=== PATIENT | female | born 1965 | race Caucasian/White ===

== ENCOUNTER → 2022-12-10 09:02 | Outpatient (BNVA) | payer OTHER, SELFPAY | PROVIDERS: Visit Provider Student in an Organized Health Care Education/Training Program | DX: Z13.89 Encounter for screening for other disorder (principal) ==

== ENCOUNTER 2023-06-12 11:31 | Outpatient (AMB) | payer OTHER, SELFPAY ==
--- NOTE | 2023-06-12 11:31 | MHC.OFFVIS ---
Intake Intake Visit Reasons: PsA Allergies pantoprazole Adverse Reaction (Intermediate, Verified 06/12/23 11:33) Unknown morphine Adverse Reaction (Unknown, Verified 06/12/23 11:33) unknown NSAIDS (Non-Steroidal Anti-Inflamma Adverse Reaction (Unknown, Verified 06/12/23 11:33) Unknown onions and garlic Allergy (Unknown, Uncoded 06/12/23 11:33) Unknown Medication List - Last Reconciled 06/12/23 by Courtney Wild MD adalimumab (Humira(CF) Pen) 40 mg (0.4 mL) subcut Q2W albuterol sulfate 90 mcg/actuation (ProAir HFA) 2 puffs inhalation Q6H PRN calcium carbonate-vitamin D3 600 mg-10 mcg (400 unit) (Calcium 600 + D(3)) 1 tab PO DAILY conjugated estrogens (Premarin) 0.625 mg vaginal 2XW diphenhydramine HCl (Benadryl Allergy) 25 mg PO BEDTIME PRN fluocinonide 0.05% 1 appl topical BID fluoxetine 20 mg PO TID fluticasone propionate 50 mcg/actuation (Flonase Allergy Relief) 1 spray intranasal DAILY folic acid 1 mg PO DAILY multivitamin (Daily Multi-Vitamin tablet) 1 tab PO DAILY olanzapine 2.5 mg PO BID HPI HPI Comments History of Present Illness Details 58-year-old female with psoriatic arthritis returns for a tele health visit. She states that she is having some stomach upset. She believes that she ate too much a few days ago and she does not feel comfortable driving to [place]. She denies any fevers or diarrhea. Compliant with Humira. No new rashes. Initial history: This is a 57-year-old female with a past medical history of anxiety, depression, GERD, HLA B27 positive ankylosing spondylitis who presents for evaluation of ankylosing spondylitis. 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 Symptoms started about 7 years ago with pain in right hand, right wrist and right ankle.? Gets swelling in right thumb, right wrist and right ankle swelling.?She has had low back pain for more than 15 years ago, she has had multiple back injections. She was diagnosed with psoriasis more than 20 years ago, at psoriasis on scalp, hands and feet as well as other areas.? This has been managed with steroid creams.? Father has psoriasis He was initially evaluated by Dr. Crow in 02/2021, she was started on methotrexate, patient could not tolerate methotrexate due to significant GI upset and fatigue. She was switched to Humira in September of 2021 and has been doing great since then. She continues to have occasional aches and pains usually related to activity. No recurrent psoriasis currently. [facility] Medical History Anxiety and depression Asthma Dermatitis GERD (gastroesophageal reflux disease) IBS (irritable bowel syndrome) Obesity Surgical History H/O: hysterectomy History of knee replacement Hx of colonoscopy Hx of esophagogastroduodenoscopy Family History Mother COPD (chronic obstructive pulmonary disease) Hyperlipemia PVD (peripheral vascular disease) CVA (cerebral vascular accident) Father Psoriasis Social History Household Members: Spouse Household Members Other:: Daugther in medical school Alcohol intake: current Patient Tobacco Use Status: Never used Tobacco Current occupational status: employed 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 Review of Systems Const All systems reviewed & are unremarkable except as noted in HPI and below ENT Reports no additional complaints GI Reports dyspepsia Psych Reports no additional complaints Physical Exam Resp Effort & Inspection: normal respiratory effort and able to speak in complete sentences Assessment & Plan Assessment & Plan (1) Psoriatic arthritis: Comment: HLA b27 +ve Dx 02/2021, MRI +ve for sacroiliitis L>R no erosions MTX started 04/2021, not tolerated due to GI upset Humira started 09/2021 effective Code(s): L40.50 - Arthropathic psoriasis, unspecified Plan: This is a 58-year-old female with psoriatic arthritis who rate presents for a tele health phone visit. Doing well overall. Denies any swollen or tender joints. Denies any skin rashes. Recent labs in December 2022 showed normal inflammatory markers. Continue Humira every other week. Labs before next visit in 4 months (2) Transaminitis: Code(s): R74.01 - Elevation of levels of liver transaminase levels Plan: Chronic and fluctuating. Has been following up with Gastroenterology. Plan I spent 8 minutes on the phone with patient, additional 7 minutes were spent reviewing patient's chart and documenting Telehealth Telehealth Location of provider rendering services: practice address Location of patient: address on file Patient Identification confirmed using: Name, : Yes Telehealth method: voice only Patient verbally consented to treatment: Yes Patient verbally consented to billing insurance company: Yes Coding Level of Care Code Tele Est Pt Level 3 (97414) Diagnoses Psoriatic arthritis L40.50 Transaminitis R74.01
== END 2023-06-12 11:59 | disposition home or self-care (01) ==
LOC: HO.RHE 11:31
PROVIDERS: Visit Provider Student in an Organized Health Care Education/Training Program
DX: L40.50 Arthropathic psoriasis, unspecified (principal); R74.01 Elevation of levels of liver transaminase levels
CPT/HCPCS: 99442

== ENCOUNTER → 2023-06-12 11:31 | Outpatient (BNVA) | payer OTHER, SELFPAY | PROVIDERS: Visit Provider Student in an Organized Health Care Education/Training Program ==

== ENCOUNTER 2023-08-19 12:05 | Outpatient (AMB) | payer OTHER, SELFPAY ==
[2023-08-19 12:06] VITALS: BP 114/80; PULSE 76; TEMP 36.2; O2SAT 94; BMI 38.8
--- NOTE | 2023-08-19 12:06 | MHC.OFFVIS ---
Intake Vital Signs 08/19/23 12:06 Height 5 ft Weight 198 lb 13.711 oz BMI 38.8 BP 114/80 Blood Pressure Location Lt brachial Position Sitting Pulse 76 Pulse Source Pulse Oximeter Temp 97.1 F Temp Source Skin Pulse Oximetry (%) 94 Oxygen Delivery Method Room Air Intake Visit Reasons: RA Intake Note: Pt presents today for RA follow up and test results. Patient would like to discuss new RA treatment. 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 Required: No Accompanied by: Self / Same As Patient Allergies adalimumab [From Humira(CF)] Adverse Reaction (Intermediate, Verified 08/19/23 12:47) peripheral neuropathy pantoprazole Adverse Reaction (Intermediate, Verified 08/19/23 12:07) Unknown morphine Adverse Reaction (Unknown, Verified 08/19/23 12:07) unknown NSAIDS (Non-Steroidal Anti-Inflamma Adverse Reaction (Unknown, Verified 08/19/23 12:07) Unknown onions and garlic Allergy (Unknown, Uncoded 08/19/23 12:07) Unknown Medication List - Last Reconciled 08/19/23 by Courtney Wild MD albuterol sulfate 90 mcg/actuation (ProAir HFA) 2 puffs inhalation Q6H PRN calcium carbonate-vitamin D3 600 mg-10 mcg (400 unit) (Calcium 600 + D(3)) 1 tab PO DAILY ciclopirox 8% topical conjugated estrogens (Premarin) 0.625 mg vaginal 2XW diphenhydramine HCl (Benadryl Allergy) 25 mg PO BEDTIME PRN fluocinonide 0.05% 1 appl topical BID fluoxetine 20 mg PO TID fluticasone propionate 50 mcg/actuation (Flonase Allergy Relief) 1 spray intranasal DAILY folic acid 1 mg PO DAILY multivitamin (Daily Multi-Vitamin tablet) 1 tab PO DAILY olanzapine 2.5 mg PO BID vit C,F-Ss-haqpy-lutein-zeaxan 250-90-40-1 mg (PreserVision AREDS-2) 2 tabs PO ONCE HPI HPI Comments History of Present Illness Details 58-year-old female with psoriatic arthritis/spondylitis returns for follow-up. Three weeks ago patient call the clinic complaining of tingling and numbness of all her 4 extremities. This had been going on for at least 1 month. I advised patient to hold Humira. Patient stopped Humira for the last month. She states that she had at least 80-90% improvement in her neuropathic symptoms. However she has been having worsening left lower back/left buttock pain. States that she has been getting more itchy scalp recently but no clear psoriasis patches. Initial history: This is a 57-year-old female with a past medical history of anxiety, depression, GERD, HLA B27 positive ankylosing spondylitis who presents for evaluation of ankylosing spondylitis. 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 Symptoms started about 7 years ago with pain in right hand, right wrist and right ankle.? Gets swelling in right thumb, right wrist and right ankle swelling.?She has had low back pain for more than 15 years ago, she has had multiple back injections. She was diagnosed with psoriasis more than 20 years ago, at psoriasis on scalp, hands and feet as well as other areas.? This has been managed with steroid creams.? Father has psoriasis He was initially evaluated by Dr. Crow in 02/2021, she was started on methotrexate, patient could not tolerate methotrexate due to significant GI upset and fatigue. She was switched to Humira in September of 2021 and has been doing great since then. She continues to have occasional aches and pains usually related to activity. No recurrent psoriasis currently. [facility] Medical History Obesity IBS (irritable bowel syndrome) GERD (gastroesophageal reflux disease) Dermatitis Asthma Anxiety and depression Surgical History Hx of esophagogastroduodenoscopy Hx of colonoscopy History of knee replacement H/O: hysterectomy Family History Mother COPD (chronic obstructive pulmonary disease) Hyperlipemia PVD (peripheral vascular disease) CVA (cerebral vascular accident) Father Psoriasis Social History Household Members: Spouse Household Members Other:: Daugther in medical school Alcohol intake: current Patient Tobacco Use Status: Never used Tobacco Current occupational status: employed 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 Review of Systems Const All systems reviewed & are unremarkable except as noted in HPI and below ENT Reports no additional complaints GI Reports dyspepsia Musc Reports back pain Skin/Breast Reports pruritus and Denies rash Psych Reports no additional complaints Physical Exam Vital Signs: Last Vital Signs Temp 97.1 F 08/19/23 12:06 Pulse 76 08/19/23 12:06 BP 114/80 08/19/23 12:06 Pulse Ox 94 08/19/23 12:06 Oxygen Delivery Method Room Air 08/19/23 12:06 BMI result Body Mass Index 38.8 Const General: cooperative, healthy appearing, comfortable and no acute distress Nutritional Appearance: obese Orientation/consciousness: patient oriented x3 HEENT Head: Yes normocephalic and Yes atraumatic Resp Effort & Inspection: normal respiratory effort and able to speak in complete sentences Auscultation: clear to auscultation bilaterally Cardio Rate: regular rate Rhythm: regular rhythm Heart sounds: S1 normal heart sound present and S2 normal heart sound present GI Inspection: No distended Palpation (GI): Soft to palpation and nontender Skin Other: No psoriasis rashes appreciated today Rashes: no rashes Neuro General: patient oriented x3 Extrem Other: No active synovitis Chavez test 10-17 cm Normal lateral flexion test bilaterally Left buttock discomfort with straight leg raise test Left buttock tenderness Normal nailfold capillaroscopy Few finger nail ridges Assessment & Plan Assessment & Plan (1) Psoriatic arthritis: Comment: HLA b27 +ve Dx 02/2021, MRI +ve for sacroiliitis L>R no erosions MTX started 04/2021, not tolerated due to GI upset Humira started 09/2021 effective DC 07/2023 due to neuropathy Code(s): L40.50 - Arthropathic psoriasis, unspecified Plan: This is a 58-year-old female with psoriatic arthritis/spondylitis who presents for follow-up. Patient discontinued Humira about a month ago due to neuropathy symptoms with rapid improvement of her symptoms. Need to switch DMARDs. Discussed risks and benefits of IL 17 inhibitors. There is no known family history of inflammatory bowel disease. Patient agreed to proceed. Will start prior authorization for Taltz. Cosentyx would also be a good option. Labs today and before next visit in 3 months Infectious screening: Hepatitis panel and T spot negative in 2022 (2) Transaminitis: Code(s): R74.01 - Elevation of levels of liver transaminase levels Plan: Chronic and fluctuating. Has been following up with Gastroenterology. (3) Immunization counseling: Code(s): Z71.85 - Encounter for immunization safety counseling Plan: Discussed ACR vaccination guidelines for adults with autoimmune rheumatic disease on immune suppression. Patient received both flu and COVID vaccines this season. Plan I spent 32 minutes reviewing patient's chart, evaluating patient, ordering diagnostic workup, counseling patient and documenting in the chart Orders: Orders Complete Blood Count Auto Diff Today L40.50 - Arthropathic psoriasis, unspecified Comprehensive Met. Panel Today L40.50 - Arthropathic psoriasis, unspecified Complete Blood Count Auto Diff 3 Months L40.50 - Arthropathic psoriasis, unspecified Comprehensive Met. Panel 3 Months L40.50 - Arthropathic psoriasis, unspecified Erythrocyte Sedimentation Rate 3 Months L40.50 - Arthropathic psoriasis, unspecified C Reactive Protein Today L40.50 - Arthropathic psoriasis, unspecified Erythrocyte Sedimentation Rate Today L40.50 - Arthropathic psoriasis, unspecified C Reactive Protein 3 Months L40.50 - Arthropathic psoriasis, unspecified Coding Level of Care Code Est Pt Level 4 (14445) Diagnoses Psoriatic arthritis L40.50 Transaminitis R74.01 Immunization counseling Z71.85
== END 2023-08-19 12:45 | disposition home or self-care (01) ==
LOC: HO.RHE 12:05
PROVIDERS: Visit Provider Student in an Organized Health Care Education/Training Program
DX: L40.50 Arthropathic psoriasis, unspecified (principal); R74.01 Elevation of levels of liver transaminase levels; Z71.85 Encounter for immunization safety counseling
CPT/HCPCS: 99214

== ENCOUNTER → 2023-08-19 12:05 | Outpatient (BNVA) | payer OTHER, SELFPAY | PROVIDERS: Visit Provider Student in an Organized Health Care Education/Training Program ==

== ENCOUNTER 2023-08-19 12:54 | Outpatient (REF) | payer OTHER, SELFPAY ==
[2023-08-19 13:28] LABS: MANUAL DIFF FLAG NO
[2023-08-19 13:50] LABS: Basophils Percent Auto 0.8 % (0-2); Eosinophils Percent Auto 0.8 % (0-4); Hematocrit 40.6 % (37.0-47.0); Hemoglobin 13.6 g/dl (12.0-16.0); Imm Gran Abs Auto 0.02 X10*3/uL (0.00-0.03); Imm Gran Pct Auto 0.4 % (0.0-0.4); Lymphocytes Absolute Auto 1.1 X10*3/uL (1.2-4.9); Lymphocytes Percent Auto 21.4 % (20-40); Mean Corpuscular HGB Conc 33.5 g/dl (31.0-35.0); Mean Corpuscular Hemoglobin 30.5 pg (27.0-33.0); Mean Platelet Volume 10.6 fL (9.4-12.3); Monocytes Absolute Auto 0.5 X10*3/uL (0.1-1.2); Monocytes Percent Auto 9.7 % (2-11); Neutrophils Absolute Auto 3.5 x10*3/uL (2.0-8.3); Neutrophils Percent Auto 66.9 % (45-73); Platelet Count 290 X10*3/uL (160-400); Red Blood Count 4.46 X10*6/uL (4.20-5.50); Red Cell Distribution Width 13.1 % (11.0-16.0); White Blood Count 5.2 X10*3/uL (4.8-10.8)
[2023-08-19 14:55] LABS: Erythrocyte Sedimentation Rate 16 MM/HR (0-20)
[2023-08-19 15:09] LABS: Alanine Aminotransferase 49 U/L (0-31); Albumin Level 4.2 g/dL (3.5-5.0); Alkaline Phosphatase 53 U/L (39-117); Anion Gap 14 (12-20); Aspartate Amino Transferase 36 U/L (5-31); Bilirubin Total 0.4 mg/dL (0.0-1.0); Blood Urea Nitrogen 17 mg/dL (9-16); C Reactive Protein 0.67 mg/dL (< or = 0.50); Calcium 9.7 mg/dL (8.4-10.2); Carbon Dioxide 24 mmol/L (22-29); Chloride 105 mmol/L (96-108); Estimated Glomerular Filt Rate > 60; Glucose Random 86 mg/dL (60-115); Potassium 3.8 mmol/L (3.3-5.1); Sodium 139 mmol/L (135-145); Total Protein 7.3 g/dL (6.5-8.0)
== END 2023-08-19 12:55 | disposition home or self-care (01) ==
LOC: HO.10HDL 12:54
PROVIDERS: Visit Provider Student in an Organized Health Care Education/Training Program
DX: L40.50 Arthropathic psoriasis, unspecified (principal)
CPT/HCPCS: 36415; 80053; 85025; 85652; 86140

== ENCOUNTER 2023-11-17 11:37 | Outpatient (AMB) | payer OTHER, SELFPAY ==
--- NOTE | 2023-11-17 11:39 | A.OFFVIS_ITS ---
Intake Vital Signs 11/17/23 11:48 Height 5 ft BMI Reason not done Patient refused/unable BP 130/80 Blood Pressure Location Rt brachial Position Sitting Pulse 78 Pulse Source Pulse Oximeter Temp 97 F Temp Source Skin Pulse Oximetry (%) 97 Oxygen Delivery Method Room Air Intake Visit Reasons: PsA Intake Note: Pt last seen 08/19/23 presents today for follow up and test results. Medical Practice Assistant Required: No Accompanied by: Self / Same As Patient Allergies adalimumab [From Humira(CF)] Adverse Reaction (Intermediate, Verified 11/17/23 11:47) peripheral neuropathy pantoprazole Adverse Reaction (Intermediate, Verified 11/17/23 11:47) Unknown morphine Adverse Reaction (Unknown, Verified 11/17/23 11:47) unknown NSAIDS (Non-Steroidal Anti-Inflamma Adverse Reaction (Unknown, Verified 11/17/23 11:47) Unknown onions and garlic Allergy (Unknown, Uncoded 11/17/23 11:47) Unknown Medication List - Last Reconciled 11/17/23 by Courtney Wild MD albuterol sulfate 90 mcg/actuation (ProAir HFA) 2 puffs inhalation Q6H PRN calcium carbonate-vitamin D3 600 mg-10 mcg (400 unit) (Calcium 600 + D(3)) 1 tab PO DAILY ciclopirox 8% topical conjugated estrogens (Premarin) 0.625 mg vaginal 2XW diphenhydramine HCl (Benadryl Allergy) 25 mg PO BEDTIME PRN fluconazole 200 mg PO DAILY 14 days fluocinonide 0.05% 1 appl topical BID fluoxetine 20 mg PO TID fluticasone propionate 50 mcg/actuation (Flonase Allergy Relief) 1 spray intranasal DAILY folic acid 1 mg PO DAILY multivitamin (Daily Multi-Vitamin tablet) 1 tab PO DAILY olanzapine 2.5 mg PO BID Taltz Autoinjector (2 Pack) (ixekizumab) 80 mg subcut Q4W NS vit C,P-Zc-zhruv-lutein-zeaxan 250-90-40-1 mg (PreserVision AREDS-2) 2 tabs PO ONCE HPI HPI Comments History of Present Illness Details 58-year-old female with psoriatic arthri tis/spondylitis returns for follow-up. Patient started Taltz about 3 months ago. She received the loading dose followed by 2 maintenance doses. About 10 days ago patient started having a metallic taste in her mouth. She was evaluated by her PCP and was told that she has thrush and prescribed fluconazole 100 mg x 8 days with resolution of the thrush in her mouth however she continues to have some throat pain, pain with swallowing and metallic taste in her mouth. She states that her back/buttock pain is much improved since starting Taltz. Denies any nausea. She states that she continues to get intermittent tingling and numbness of her left upper extremity that lasts very briefly and resolved. Overall the neuropathy symptoms are improving Initial history: This is a 57-year-old female with a past medical history of anxiety, depression, GERD, HLA B27 positive ankylosing spondylitis who presents for evaluation of ankylosing spondylitis. 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 Symptoms started about 7 years ago with pain in right hand, right wrist and right ankle.? Gets swelling in right thumb, right wrist and right ankle swelling.?She has had low back pain for more than 15 years ago, she has had multiple back injections. She was diagnosed with psoriasis more than 20 years ago, at psoriasis on scalp, hands and feet as well as other areas.? This has been managed with steroid creams.? Father has psoriasis He was initially evaluated by Dr. Crow in 02/2021, she was started on methotrexate, patient could not tolerate methotrexate due to significant GI upset and fatigue. She was switched to Humira in September of 2021 and has been doing great since then. She continues to have occasional aches and pains usually related to activity. No recurrent psoriasis currently. [facility] Medical History Obesity IBS (irritable bowel syndrome) GERD (gastroesophageal reflux disease) Dermatitis Asthma Anxiety and depression Surgical History Hx of esophagogastroduodenoscopy Hx of colonoscopy History of knee replacement H/O: hysterectomy Family History Mother COPD (chronic obstructive pulmonary disease) Hyperlipemia PVD (peripheral vascular disease) CVA (cerebral vascular accident) Father Psoriasis Sister Crohn disease Social History Household Members: Spouse Household Members Other:: Daugther in medical school Alcohol intake: current Patient Tobacco Use Status: Never used Tobacco Current occupational status: employed 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 Review of Systems ENT Reports halitosis and Reports odynophagia GI Reports odynophagia Musc Reports back pain and Reports arthralgias Physical Exam Vital Signs: Last Vital Signs Temp 97 F 11/17/23 11:48 Pulse 78 11/17/23 11:48 BP 130/80 11/17/23 11:48 Pulse Ox 97 11/17/23 11:48 Oxygen Delivery Method Room Air 11/17/23 11:48 Const General: cooperative, healthy appearing, comfortable and no acute distress Nutritional Appearance: obese Orientation/consciousness: patient oriented x3 HEENT Other: No thrush Head: Yes normocephalic and Yes atraumatic Mouth: moist mucous membranes Resp Effort & Inspection: normal respiratory effort and able to speak in complete sentences Auscultation: clear to auscultation bilaterally Cardio Rate: regular rate Rhythm: regular rhythm GI Inspection: No distended Palpation (GI): Soft to palpation and nontender Skin Other: No psoriasis rashes appreciated today Rashes: no rashes Neuro General: patient oriented x3 Extrem Other: No active synovitis Left buttock discomfort with straight leg raise test Left buttock tenderness Left lower back/left buttock pain with RAQUEL test on the right Normal nailfold capillaroscopy Few finger nail ridges Assessment & Plan Assessment & Plan (1) Psoriatic arthritis: Comment: HLA b27 +ve Dx 02/2021, MRI +ve for sacroiliitis L>R no erosions MTX started 04/2021, not tolerated due to GI upset Humira started 09/2021 effective DC 07/2023 due to neuropathy Taltz 09/2023 effective Held 11/2022 due to thrush Code(s): L40.50 - Arthropathic psoriasis, unspecified Plan: This is a 58-year-old female with psoriatic arthritis/spondylitis who presents for follow-up. Patient has been on Taltz for about 3 months now, 10 days ago she started having oral thrush, odynophagia, throat pain, she was prescribed fluconazole 100 mg x 8 days by PCP, with resolution of oral thrush but continues to have throat pain and odynophagia. I think this is a side effect of the Taltz. He might be having pharyngeal esophageal candidiasis. For now I advised patient to hold Taltz. Will prescribe fluconazole 200 mg x 14 days. Advised patient to reach out to her director of vocational guidance. I strongly recommend an endoscopy to rule out any esophageal candidiasis or viral infection such as herpes. Before another biologic DMARDs can be tried Advised patient to read up on CIARRA inhibitors such as Xeljanz and Rinvoq Labs before next visit in 8 weeks Infectious screening: Hepatitis panel and T spot negative in 2022 (2) Transaminitis: Code(s): R74.01 - Elevation of levels of liver transaminase levels Plan: Chronic and fluctuating. Has been following up with Gastroenterology. (3) Paresthesia of left upper extremity: Code(s): R20.2 - Paresthesia of skin Plan: Ordered EMG/NCV of left upper extremity Plan I spent 46 minutes reviewing patient's chart, evaluating patient, ordering diagnostic workup, counseling patient and documenting in the chart Orders: Orders Complete Blood Count Auto Diff 8 Weeks L40.50 - Arthropathic psoriasis, unspecified Comprehensive Met. Panel 8 Weeks L40.50 - Arthropathic psoriasis, unspecified C Reactive Protein 8 Weeks L40.50 - Arthropathic psoriasis, unspecified Erythrocyte Sedimentation Rate 8 Weeks L40.50 - Arthropathic psoriasis, unspecified NE electromyogram (EMG) Today R20.2 - Paresthesia of skin Medications: New fluconazole 200 mg PO DAILY 14 days 14 tabs 0RF On Hold Taltz Autoinjector (2 Pack) (ixekizumab) Hold Comment: Doctor's Order 80 mg subcut Q4W 1 mL 2RF NS Coding Level of Care Code Est Pt Level 5 (80135) Diagnoses Psoriatic arthritis L40.50 Transaminitis R74.01 Paresthesia of left upper extremity R20.2
[2023-11-17 11:48] VITALS: BP 130/80; PULSE 78; TEMP 36.1; O2SAT 97
== END 2023-11-17 12:25 | disposition home or self-care (01) ==
LOC: HO.RHE 11:37
PROVIDERS: Visit Provider Student in an Organized Health Care Education/Training Program
DX: L40.50 Arthropathic psoriasis, unspecified (principal); R74.01 Elevation of levels of liver transaminase levels; R20.2 Paresthesia of skin
CPT/HCPCS: 99215

== ENCOUNTER → 2023-11-17 11:37 | Outpatient (BNVA) | payer OTHER, SELFPAY | PROVIDERS: Visit Provider Student in an Organized Health Care Education/Training Program ==

== ENCOUNTER 2023-11-27 10:19 | Outpatient (REF) | payer OTHER, SELFPAY ==
--- NOTE | 2023-11-27 | EMG_ITS ---
Bilateral median and ulnar motor and sensory studies were performed. Bilateral radial sensory study was performed and paraspinal muscles were tested with a needle. IMPRESSION: Mild right median neuropathy across carpal tunnel. Otherwise, this study was unremarkable. MD REAL [facility]/JACOB / [id number]
== END 2023-11-27 10:20 | disposition home or self-care (01) ==
LOC: HO.NEURO 10:19
PROVIDERS: PCP Registered Nurse Oncology; Visit Provider Student in an Organized Health Care Education/Training Program
DX: R20.2 Paresthesia of skin (principal)
CPT/HCPCS: 95886; 95911

== ENCOUNTER 2024-01-07 11:33 | Outpatient (AMB) | payer OTHER, SELFPAY ==
--- NOTE | 2024-01-07 11:42 | A.OFFVIS_ITS ---
Intake Vital Signs 01/07/24 11:46 Height 5 ft BMI Reason not done Patient refused/unable BP 116/72 Blood Pressure Location Rt brachial Pulse 78 Pulse Source Pulse Oximeter Pulse Oximetry (%) 96 Oxygen Delivery Method Room Air Comment pt stated she is on a diet Intake Visit Reasons: Intake Note: Patient last seen 11/17/23 presents today for follow up and test results. Pt did labs at [facility] CRP 0.7 and ESR 15.. they will be faxing a report shortly. Oxygen Equipment Aide Required: No Accompanied by: Self / Same As Patient Allergies adalimumab [From Humira(CF)] Adverse Reaction (Intermediate, Verified 01/07/24 11:48) peripheral neuropathy pantoprazole Adverse Reaction (Intermediate, Verified 01/07/24 11:48) Unknown morphine Adverse Reaction (Unknown, Verified 01/07/24 11:48) unknown NSAIDS (Non-Steroidal Anti-Inflamma Adverse Reaction (Unknown, Verified 01/07/24 11:48) Unknown onions and garlic Allergy (Unknown, Uncoded 01/07/24 11:48) Unknown Medication List - Last Reconciled 01/07/24 by Courtney Wild MD albuterol sulfate 90 mcg/actuation (ProAir HFA) 2 puffs inhalation Q6H PRN calcium carbonate-vitamin D3 600 mg-10 mcg (400 unit) (Calcium 600 + D(3)) 1 tab PO DAILY ciclopirox 8% topical conjugated estrogens (Premarin) 0.625 mg vaginal 2XW diphenhydramine HCl (Benadryl Allergy) 25 mg PO BEDTIME PRN fluconazole 200 mg PO DAILY 14 days fluocinonide 0.05% 1 appl topical BID fluoxetine 20 mg PO TID fluticasone propionate 50 mcg/actuation (Flonase Allergy Relief) 1 spray intranasal DAILY folic acid 1 mg PO DAILY multivitamin (Daily Multi-Vitamin tablet) 1 tab PO DAILY olanzapine 2.5 mg PO BID Rinvoq ER (upadacitinib) 15 mg PO DAILY NS vit C,E-Jy-ktgek-lutein-zeaxan 250-90-40-1 mg (PreserVision AREDS-2) 2 tabs PO ONCE HPI HPI Comments History of Present Illness0 Details 58-year-old female with psoriatic arthri tis/spondylitis returns for follow-up. Patient had a thrush with Taltz. She was prescribed fluconazole with resolution of her oral thrush, an endoscopy was done and grossly there was no signs of infection. We discussed risks and benefits of Rinvoq. Patient agreed to proceed and Rinvoq was approved. Patient did not start Rinvoq yet. She is worried about getting a stroke. She stated that her mother had a stroke. She is going on a trip shortly to [place] and she is worried about getting a blood clot. She continues to have low back stiffness. States that she continues to have neuropathy symptoms affecting her left hand. She states that sometimes her feet go numb while in a dance class. Initial history: This is a 57-year-old female with a past medical history of anxiety, depression, GERD, HLA B27 positive ankylosing spondylitis who presents for evaluation of ankylosing spondylitis. Her previous vp lab left the practice. Symptoms started about 7 years ago with pain in right hand, right wrist and right ankle.? Gets swelling in right thumb, right wrist and right ankle swelling.?She has had low back pain for more than 15 years ago, she has had multiple back injections. She was diagnosed with psoriasis more than 20 years ago, at psoriasis on scalp, hands and feet as well as other areas.? This has been managed with steroid creams.? Father has psoriasis He was initially evaluated by Dr. Crow in 02/2021, she was started on methotrexate, patient could not tolerate methotrexate due to significant GI upset and fatigue. She was switched to Humira in September of 2021 and has been doing great since then. She continues to have occasional aches and pains usually related to activity. No recurrent psoriasis currently. [facility] Medical History Obesity IBS (irritable bowel syndrome) GERD (gastroesophageal reflux disease) Dermatitis Asthma Anxiety and depression Surgical History Hx of esophagogastroduodenoscopy Hx of colonoscopy History of knee replacement H/O: hysterectomy Family History Mother COPD (chronic obstructive pulmonary disease) Hyperlipemia PVD (peripheral vascular disease) CVA (cerebral vascular accident) Father Psoriasis Sister Crohn disease Social History Household Members: Spouse Household Members Other:: Daugther in medical school Alcohol intake: current Patient Tobacco Use Status: Never used Tobacco Current occupational status: employed 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 [employer] Reports back pain, Reports arthralgias, Denies joint swelling and Reports stiffness Psych Reports anxiety Physical Exam Vital Signs: Last Vital Signs Pulse 78 01/07/24 11:46 BP 116/72 01/07/24 11:46 Pulse Ox 96 01/07/24 11:46 Oxygen Delivery Method Room Air 01/07/24 11:46 Const General: cooperative, healthy appearing, comfortable and no acute distress Nutritional Appearance: obese Orientation/consciousness: patient oriented x3 HEENT Other: No thrush Head: Yes normocephalic and Yes atraumatic Mouth: moist mucous membranes Resp Effort & Inspection: normal respiratory effort and able to speak in complete sentences Auscultation: clear to auscultation bilaterally Cardio Rate: regular rate Rhythm: regular rhythm GI Inspection: No distended Palpation (GI): Soft to palpation and nontender Skin Other: No psoriasis rashes appreciated today Rashes: no rashes Neuro General: patient oriented x3 Extrem Other: No active synovitis Left buttock discomfort with straight leg raise test Left buttock tenderness Left lower back/left buttock pain with RAQUEL test on the right Normal nailfold capillaroscopy Few finger nail ridges Assessment & Plan Assessment & Plan (1) Psoriatic arthritis: Comment: HLA b27 +ve Dx 02/2021, MRI +ve for sacroiliitis L>R no erosions MTX started 04/2021, not tolerated due to GI upset Humira started 09/2021 effective DC 07/2023 due to neuropathy Taltz 09/2023 effective DC 11/2022 due to thrush Code(s): L40.50 - Arthropathic psoriasis, unspecified Plan: This is a 58-year-old female with psoriatic arthritis/spondylitis who presents for follow-up. She is off DMARDs with recurrent back pain, stiffness, increased inflammatory markers. Needs to restart DMARDs. Rinvoq was approved but patient did not start it due to risk of side effects especially thromboembolic events. Today we had a long conversation about different DMARDs and their potential side effects. Patient asked about Otezla and Orencia, I explained that she has sacroiliitis and Otezla and Orencia generally are not effective for sacroiliitis. When patient started Humira, there was some neuropathy symptoms affecting her left hand. Today she mentions bilateral feet numbness with exercises. Bilateral upper extremity EMG/NCV showed mild carpal tunnel syndrome on the right. Patient's symptoms are on the left. At this point, it is hard to ascertain that those symptoms were related to Humira. After a long conversation. Patient stated that she prefers Humira. She will think about it a little bit longer and let me know Advised patient to make an appointment with a neurologist Labs before next visit in 2 months Infectious screening: Hepatitis panel and T spot negative in 2022 (2) Transaminitis: Code(s): R74.01 - Elevation of levels of liver transaminase levels Plan: Chronic and fluctuating. Has been following up with Gastroenterology. (3) Paresthesia of left upper extremity: Code(s): R20.2 - Paresthesia of skin Plan: EMG/NCV of both upper extremities was normal on the left and showed mild median neuropathy on the right Plan I spent 46 minutes reviewing patient's chart, evaluating patient, ordering diagnostic workup, counseling patient and documenting in the chart Orders: Orders Complete Blood Count Auto Diff 2 Months L40.50 - Arthropathic psoriasis, unspecified Comprehensive Met. Panel 2 Months L40.50 - Arthropathic psoriasis, unspecified C Reactive Protein 2 Months L40.50 - Arthropathic psoriasis, unspecified Erythrocyte Sedimentation Rate 2 Months L40.50 - Arthropathic psoriasis, unspecified Coding Level of Care Code Est Pt Level 5 (59263) Diagnoses Psoriatic arthritis L40.50 Transaminitis R74.01 Paresthesia of left upper extremity R20.2
[2024-01-07 11:46] VITALS: BP 116/72; PULSE 78; O2SAT 96
== END 2024-01-07 12:30 | disposition home or self-care (01) ==
PROVIDERS: PCP Registered Nurse Oncology; Visit Provider Student in an Organized Health Care Education/Training Program
DX: L40.50 Arthropathic psoriasis, unspecified (principal); R74.01 Elevation of levels of liver transaminase levels; R20.2 Paresthesia of skin
CPT/HCPCS: 99214

== ENCOUNTER → 2024-01-07 11:33 | Outpatient (BNVA) | payer OTHER, SELFPAY | PROVIDERS: PCP Registered Nurse Oncology; Visit Provider Student in an Organized Health Care Education/Training Program ==

== ENCOUNTER 2024-06-11 11:52 | Outpatient (AMB) | payer OTHER, SELFPAY ==
--- NOTE | 2024-06-11 11:55 | A.OFFVIS_ITS ---
Vital Signs 06/11/24 11:57 Height 5 ft Weight 196 lb 3.382 oz BMI 38.3 BP 120/82 Blood Pressure Location Rt brachial Position Sitting Pulse 70 Pulse Source Pulse Oximeter Pulse Oximetry (%) 98 Oxygen Delivery Method Room Air Intake Visit Reasons: Intake Note: Patient presents for . Allergies adalimumab [From Humira(CF)] Adverse Reaction (Intermediate, Verified 06/11/24 11:58) peripheral neuropathy pantoprazole Adverse Reaction (Intermediate, Verified 06/11/24 11:58) Unknown morphine Adverse Reaction (Unknown, Verified 06/11/24 11:58) unknown NSAIDS (Non-Steroidal Anti-Inflamma Adverse Reaction (Unknown, Verified 06/11/24 11:58) Unknown onions and garlic Allergy (Unknown, Uncoded 01/07/24 11:48) Unknown Medication List - Last Reconciled 06/11/24 by Courtney Wild MD albuterol sulfate 90 mcg/actuation (ProAir HFA) 2 puffs inhalation Q6H PRN calcium carbonate-vitamin D3 600 mg-10 mcg (400 unit) (Calcium 600 + D(3)) 1 tab PO DAILY ciclopirox 8% topical conjugated estrogens (Premarin) 0.625 mg vaginal 2XW diphenhydramine HCl (Benadryl Allergy) 25 mg PO BEDTIME PRN fluconazole 200 mg PO DAILY 14 days fluocinonide 0.05% 1 appl topical BID fluoxetine 20 mg PO TID fluticasone propionate 50 mcg/actuation (Flonase Allergy Relief) 1 spray intranasal DAILY folic acid 1 mg PO DAILY multivitamin (Daily Multi-Vitamin tablet) 1 tab PO DAILY olanzapine 2.5 mg PO BID Taltz Autoinjector (ixekizumab) 80 mg subcut Q4W NS vit C,J-Uh-nzoch-lutein-zeaxan 250-90-40-1 mg (PreserVision AREDS-2) 2 tabs PO ONCE HPI Comments Details: 59-year-old female with psoriatic arthritis/spondylitis returns for follow-up. She states that her joints are doing much better overall, she continues to have left buttock pain but that seems chronic, not had any swollen or tender joints. She states that her psoriasis is a little bit worse, she is having flare-ups on her axilla bilaterally, and she gets intermittent flare-ups on her forearms. She has Not had any infections. Has not had recurrent thrush. Initial history: This is a 57-year-old female with a past medical history of anxiety, depression, GERD, HLA B27 positive ankylosing spondylitis who presents for evaluation of ankylosing spondylitis. Her previous product lister left the practice. Symptoms started about 7 years ago with pain in right hand, right wrist and right ankle.? Gets swelling in right thumb, right wrist and right ankle swelling.?She has had low back pain for more than 15 years ago, she has had multiple back injections. She was diagnosed with psoriasis more than 20 years ago, at psoriasis on scalp, hands and feet as well as other areas.? This has been managed with steroid creams.? Father has psoriasis He was initially evaluated by Dr. Crow in 02/2021, she was started on methotrexate, patient could not tolerate methotrexate due to significant GI upset and fatigue. She was switched to Humira in September of 2021 and has been doing great since then. She continues to have occasional aches and pains usually related to activity. No recurrent psoriasis currently. [facility] Medical History Obesity IBS (irritable bowel syndrome) GERD (gastroesophageal reflux disease) Dermatitis Asthma Anxiety and depression Surgical History Hx of esophagogastroduodenoscopy Hx of colonoscopy History of knee replacement H/O: hysterectomy Family History Mother COPD (chronic obstructive pulmonary disease) Hyperlipemia PVD (peripheral vascular disease) CVA (cerebral vascular accident) Father Psoriasis Sister Crohn disease Social History Household Members: Spouse Household Members Other:: Daugther in medical school Alcohol intake: current Patient Tobacco Use Status: Never used Tobacco Current occupational status: employed 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 Female Reproductive History Menstrual Total pregnancies: 1 Number of Living Children: 1 Review of Systems [facility] [place] Reports arthralgias Skin/Breast Reports lesions Physical Exam Vital Signs: Last Vital Signs Pulse 70 06/11/24 11:57 BP 120/82 06/11/24 11:57 Pulse Ox 98 06/11/24 11:57 Oxygen Delivery Method Room Air 06/11/24 11:57 BMI result Body Mass Index 38.3 Const General: cooperative, healthy appearing, comfortable and no acute distress Nutritional Appearance: obese Orientation/consciousness: patient oriented x3 HEENT Other: No thrush Head: Yes normocephalic and Yes atraumatic Mouth: moist mucous membranes Resp Effort & Inspection: normal respiratory effort and able to speak in complete sentences Auscultation: clear to auscultation bilaterally Cardio Rate: regular rate Rhythm: regular rhythm GI Inspection: No distended Palpation (GI): Soft to palpation and nontender Skin Other: Psoriasis rashes on both axilla Rashes: no rashes Neuro General: patient oriented x3 Extrem Other: No active synovitis Left buttock tenderness Negative straight leg raise test bilaterally Negative Fabere test bilaterally Normal nailfold capillaroscopy Few finger nail ridges Assessment & Plan Assessment & Plan (1) Psoriatic arthritis: Comment: HLA b27 +ve Dx 02/2021, MRI +ve for sacroiliitis L>R no erosions MTX started 04/2021, not tolerated due to GI upset Humira started 09/2021 effective DC 07/2023 due to neuropathy Taltz 09/2023 effective DC 11/2022 due to thrush Restarted 01/2024 Code(s): L40.50 - Arthropathic psoriasis, unspecified Category: Medical Plan: This is a 59-year-old female with psoriatic arthritis/spondylitis who presents for follow-up. Doing very well on Taltz 80 mg q.4 weeks No active synovitis on exam. Patient however has been having more frequent psoriasis rashes, on exam she has patches on her axilla bilaterally Discussed with patient that we can consider increasing her Taltz to 80 mg every 2 weeks where there is possibly higher risk of oral thrush. At this time, we will treat the psoriasis with topical clobetasol Labs before next visit in 3 months Infectious screening: Hepatitis panel and T spot negative in 2022 (2) Transaminitis: Code(s): R74.01 - Elevation of levels of liver transaminase levels Category: Medical Plan: Chronic and fluctuating. Has been following up with Gastroenterology. Plan I spent 26 minutes reviewing patient's chart, evaluating patient, ordering diagnostic workup, counseling patient and documenting in the chart Orders: Orders Complete Blood Count Auto Diff 3 Months L40.50 - Arthropathic psoriasis, unspecified Comprehensive Met. Panel 3 Months L40.50 - Arthropathic psoriasis, unspecified C Reactive Protein 3 Months L40.50 - Arthropathic psoriasis, unspecified Erythrocyte Sedimentation Rate 3 Months L40.50 - Arthropathic psoriasis, unspecified Medications: New clobetasol 0.05% Do not apply on face or groin area 1 appl topical BID 45 grams 1RF L40.50 - Arthropathic psoriasis, unspecified Coding Level of Care Code Est Pt Level 4 (58467) Diagnoses Psoriatic arthritis L40.50 Transaminitis R74.01
[2024-06-11 11:57] VITALS: BP 120/82; PULSE 70; O2SAT 98; BMI 38.3
== END 2024-06-11 12:23 | disposition home or self-care (01) ==
LOC: HO.RHE 11:52
PROVIDERS: PCP Registered Nurse Oncology; Visit Provider Student in an Organized Health Care Education/Training Program
DX: L40.50 Arthropathic psoriasis, unspecified (principal); R74.01 Elevation of levels of liver transaminase levels
CPT/HCPCS: 99214

== ENCOUNTER → 2024-06-11 11:52 | Outpatient (BNVA) | payer OTHER, SELFPAY | PROVIDERS: PCP Registered Nurse Oncology; Visit Provider Student in an Organized Health Care Education/Training Program ==

== ENCOUNTER 2024-08-13 11:26 | Outpatient (AMB) | payer OTHER, SELFPAY ==
--- NOTE | 2024-08-13 11:28 | MHC.OFFVIS ---
Vital Signs 08/13/24 11:30 Height 5 ft Weight 191 lb 5.78 oz BMI 37.4 BP 102/64 Blood Pressure Location Rt brachial Position Sitting Respiration 16 Pulse 79 Pulse Source Pulse Oximeter Pulse Oximetry (%) 99 Oxygen Delivery Method Room Air Intake Visit Reasons: PsA Intake Note: Patient presents for PSA. Allergies adalimumab [From Humira(CF)] Adverse Reaction (Intermediate, Verified 08/13/24 11:33) peripheral neuropathy pantoprazole Adverse Reaction (Intermediate, Verified 08/13/24 11:33) Unknown morphine Adverse Reaction (Unknown, Verified 08/13/24 11:33) unknown NSAIDS (Non-Steroidal Anti-Inflamma Adverse Reaction (Unknown, Verified 08/13/24 11:33) Unknown onions and garlic Allergy (Unknown, Uncoded 01/07/24 11:48) Unknown Medication List - Last Reconciled 08/13/24 by Courtney Wild MD albuterol sulfate 90 mcg/actuation (ProAir HFA) 2 puffs inhalation Q6H PRN calcium carbonate-vitamin D3 600 mg-10 mcg (400 unit) (Calcium 600 + D(3)) 1 tab PO DAILY ciclopirox 8% topical clobetasol 0.05% 1 appl topical BID conjugated estrogens (Premarin) 0.625 mg vaginal 2XW diphenhydramine HCl (Benadryl Allergy) 25 mg PO BEDTIME PRN fluconazole 200 mg PO DAILY 14 days fluocinonide 0.05% 1 appl topical BID fluoxetine 20 mg PO TID fluticasone propionate 50 mcg/actuation (Flonase Allergy Relief) 1 spray intranasal DAILY folic acid 1 mg PO DAILY multivitamin (Daily Multi-Vitamin tablet) 1 tab PO DAILY olanzapine 2.5 mg PO BID Taltz Autoinjector (ixekizumab) 80 mg subcut Q4W NS vit C,B-Hr-isteu-lutein-zeaxan 250-90-40-1 mg (PreserVision AREDS-2) 2 tabs PO ONCE HPI Comments Details: 59-year-old female with psoriatic arthritis/spondylitis returns for follow-up. She states that she has been having left buttock pain that shoots down her left lower extremity, this is worse with certain activities such as going up the stairs and certain maneuvers in her yoga class. Her joints otherwise are doing reasonably well. Denies any swollen joints. She states that she continues to have psoriasis plaques on her scalp. It is improved with cortisone shampoo. The patches on her arms improved with steroid cream as well. Initial history: This is a 57-year-old female with a past medical history of anxiety, depression, GERD, HLA B27 positive ankylosing spondylitis who presents for evaluation of ankylosing spondylitis. Her previous ceiling installer left the practice. Symptoms started about 7 years ago with pain in right hand, right wrist and right ankle.? Gets swelling in right thumb, right wrist and right ankle swelling.?She has had low back pain for more than 15 years ago, she has had multiple back injections. She was diagnosed with psoriasis more than 20 years ago, at psoriasis on scalp, hands and feet as well as other areas.? This has been managed with steroid creams.? Father has psoriasis He was initially evaluated by Dr. Crow in 02/2021, she was started on methotrexate, patient could not tolerate methotrexate due to significant GI upset and fatigue. She was switched to Humira in September of 2021 and has been doing great since then. She continues to have occasional aches and pains usually related to activity. No recurrent psoriasis currently. [facility] Medical History Obesity IBS (irritable bowel syndrome) GERD (gastroesophageal reflux disease) Dermatitis Asthma Anxiety and depression Surgical History Hx of esophagogastroduodenoscopy Hx of colonoscopy History of knee replacement H/O: hysterectomy Family History Mother COPD (chronic obstructive pulmonary disease) Hyperlipemia PVD (peripheral vascular disease) CVA (cerebral vascular accident) Father Psoriasis Sister Crohn disease Social History Household Members: Spouse Household Members Other:: Daugther in medical school Alcohol intake: current Patient Tobacco Use Status: Never used Tobacco Current occupational status: employed 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 Female Reproductive History Menstrual Total pregnancies: 1 Number of Living Children: 1 Review of Systems [employer] Reports back pain and Reports arthralgias Skin/Breast Reports rash Physical Exam Vital Signs: Last Vital Signs Pulse 79 08/13/24 11:30 Resp 16 08/13/24 11:30 BP 102/64 08/13/24 11:30 Pulse Ox 99 08/13/24 11:30 Oxygen Delivery Method Room Air 08/13/24 11:30 BMI result Body Mass Index 37.4 Const General: cooperative, healthy appearing, comfortable and no acute distress Nutritional Appearance: obese Orientation/consciousness: patient oriented x3 HEENT Other: No thrush Head: Yes normocephalic and Yes atraumatic Mouth: moist mucous membranes Resp Effort & Inspection: normal respiratory effort and able to speak in complete sentences Cardio Rate: regular rate Rhythm: regular rhythm GI Inspection: No distended Palpation (GI): Soft to palpation and nontender Skin Other: Psoriasis rashes on both axilla resolved Subtle flaky psoriasis patches her posterior hairline, behind her ears and on her scalp Rashes: no rashes Neuro General: patient oriented x3 Extrem Other: No active synovitis Left buttock tenderness Positive straight leg raise test on the Positive RAQUEL test on the left Normal nailfold capillaroscopy Few finger nail ridges Assessment & Plan Assessment & Plan (1) Psoriatic arthritis: Comment: HLA b27 +ve Dx 02/2021, MRI +ve for sacroiliitis L>R no erosions MTX started 04/2021, not tolerated due to GI upset Humira started 09/2021 effective DC 07/2023 due to neuropathy Taltz 09/2023 effective DC 11/2022 due to thrush Restarted 01/2024 Code(s): L40.50 - Arthropathic psoriasis, unspecified Category: Medical Plan: This is a 59-year-old female with psoriatic arthritis/spondylitis who presents for follow-up. Doing very well on Taltz 80 mg q.4 weeks No active synovitis on exam. I think her complaints today are likely due to degenerative sacroiliitis versus sciatica or lumbar radiculopathy. Advised patient to follow-up with her learning and development specialist. She states that she used to get steroid injections in her spine periodically 3-4 years ago before she was diagnosed with psoriatic spondylitis. Advised patient to follow-up with her learning and development specialist Labs before next visit in 3 months Infectious screening: Hepatitis panel and T spot negative in 2022 (2) Transaminitis: Code(s): R74.01 - Elevation of levels of liver transaminase levels Category: Medical Plan: Chronic and fluctuating. Has been following up with Gastroenterology. Plan I spent 26 minutes reviewing patient's chart, evaluating patient, ordering diagnostic workup, counseling patient and documenting in the chart Orders: Referrals Sports Medicine Referral M46.1 - Sacroiliitis, not elsewhere classified Coding Level of Care Code Est Pt Level 4 (34008) Diagnoses Psoriatic arthritis L40.50 Transaminitis R74.01
[2024-08-13 11:30] VITALS: BP 102/64; PULSE 79; RESP 16; O2SAT 99; BMI 37.4
== END 2024-08-13 12:09 | disposition home or self-care (01) ==
PROVIDERS: PCP Registered Nurse Oncology; Visit Provider Student in an Organized Health Care Education/Training Program
DX: L40.50 Arthropathic psoriasis, unspecified (principal); R74.01 Elevation of levels of liver transaminase levels
CPT/HCPCS: 99214

== ENCOUNTER → 2024-08-13 11:26 | Outpatient (BNVA) | payer OTHER, SELFPAY | PROVIDERS: PCP Registered Nurse Oncology; Visit Provider Student in an Organized Health Care Education/Training Program ==

== ENCOUNTER 2025-08-16 15:14 | Outpatient (AMB) | payer OTHER, SELFPAY ==
--- NOTE | 2025-08-16 15:38 | A.OFFVIS_ITS ---
Vital Signs 08/16/25 15:49 Height 5 ft Weight 184 lb 11.958 oz BMI 36.1 BP 112/72 Blood Pressure Location Rt brachial Position Sitting Pulse 85 Pulse Source Pulse Oximeter Pulse Oximetry (%) 98 Oxygen Delivery Method Room Air Intake Visit Reasons: PsA Intake Note: Patient presents for PsA follow up. Allergies ciprofloxacin Allergy (Mild, Verified 08/16/25 15:48) Nausea adalimumab (From Humira(CF)) Adverse Reaction (Intermediate, Verified 08/16/25 15:48) peripheral neuropathy pantoprazole Adverse Reaction (Intermediate, Verified 08/16/25 15:48) Unknown morphine Adverse Reaction (Unknown, Verified 08/16/25 15:48) unknown NSAIDS (Non-Steroidal Anti-Inflamma Adverse Reaction (Unknown, Verified 08/16/25 15:48) Unknown onions and garlic Allergy (Unknown, Uncoded 01/07/24 11:48) Unknown Medication List - Last Reconciled 08/16/25 by Aye Lewis MD albuterol sulfate 90 mcg/actuation (ProAir HFA) 2 puffs inhalation Q6H PRN calcium carbonate-vitamin D3 600 mg-10 mcg (400 unit) (Calcium 600 + D(3)) 1 tab PO DAILY ciclopirox 8% topical clobetasol 0.05% 1 appl topical BID conjugated estrogens (Premarin) 0.625 mg vaginal 2XW diphenhydramine HCl (Benadryl Allergy) 25 mg PO BEDTIME PRN fluconazole 200 mg PO DAILY 14 days fluocinonide 0.05% 1 appl topical BID fluoxetine 20 mg PO TID fluticasone propionate 50 mcg/actuation (Flonase Allergy Relief) 1 spray intranasal DAILY folic acid 1 mg PO DAILY multivitamin (Daily Multi-Vitamin tablet) 1 tab PO DAILY olanzapine 2.5 mg PO BID semaglutide (weight loss) (Wegovy) mg subcut QWEEK Taltz Autoinjector (ixekizumab) 80 mg subcut Q4W NS vit C,P-Cx-qyutt-lutein-zeaxan 250-90-40-1 mg (PreserVision AREDS-2) 2 tabs PO ONCE HPI Comments Details: Patient is a 60-year-old female with asthma, depression, anxiety, 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 Wild - She states that she has been having left buttock pain that shoots down her left lower extremity, this is worse with certain activities such as going up the stairs and certain maneuvers in her yoga class. Her joints otherwise are doing reasonably well. - Denies any swollen joints. - She states that she continues to have psoriasis plaques on her scalp. It is improved with cortisone shampoo. The patches on her arms improved with steroid cream as well. Today - On Taltz 80mg SC every 4 weeks - Doing well overall - Concerned about her weight, but has been trying to lose weight and lost 16- 18lbs - Still with buttock pain - Intermittent stiffness Rheumatologic History: HLA b27 +ve Dx 02/2021, MRI +ve for sacroiliitis L>R no erosions MTX started 04/2021, not tolerated due to GI upset Humira started 09/2021 effective Initial history: This is a 57-year-old female with a past medical history of anxiety, depression, GERD, HLA B27 positive ankylosing spondylitis who presents for evaluation of ankylosing spondylitis. 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 Symptoms started about 7 years ago with pain in right hand, right wrist and right ankle.? Gets swelling in right thumb, right wrist and right ankle swelling.?She has had low back pain for more than 15 years ago, she has had multiple back injections. She was diagnosed with psoriasis more than 20 years ago, at psoriasis on scalp, hands and feet as well as other areas.? This has been managed with steroid creams.? Father has psoriasis He was initially evaluated by Dr. Crow in 02/2021, she was started on methotrexate, patient could not tolerate methotrexate due to significant GI upset and fatigue. She was switched to Humira in September of 2021 and has been doing great since then. She continues to have occasional aches and pains usually related to activity. No recurrent psoriasis currently. Current Rheumatology Medication(s): Taltz 80mg SC every 4 weeks [facility] Medical History Obesity IBS (irritable bowel syndrome) GERD (gastroesophageal reflux disease) Dermatitis Asthma Anxiety and depression Surgical History Hx of esophagogastroduodenoscopy Hx of colonoscopy History of knee replacement H/O: hysterectomy Family History Mother COPD (chronic obstructive pulmonary disease) Hyperlipemia PVD (peripheral vascular disease) CVA (cerebral vascular accident) Father Psoriasis Sister Crohn disease Social History Household Members: Spouse Household Members Other:: Daugther in medical school Alcohol intake: current Patient Tobacco Use Status: Never used Tobacco Current occupational status: employed 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 Review of Systems Const Details: Review of Systems Constitutional: Denies fever, chills, weight loss ENT: Denies vision changes, eye pain or eye redness, dental caries, dry mouth GI: Denies nausea, vomiting, diarrhea, abdominal pain, change in BM Pulm: Denies SOB, LANDRUM, hemoptysis, wheezing Cards: Denies chest pain, palpitations Skin: Denies Raynaud's, nail changes, photosensitivity, DEMO COORDINATOR: Denies headaches, weakness, paresthesias, recurrent falls MSK: as per HPI All other systems reviewed and are unremarkable except noted above Physical Exam Exam Exam: Vital signs reviewed Physical Examination CONSTITUITIONAL Patient alert and cooperative. Well appearing and in no apparent painful distress MSK Hands * Right Hand: Able to make a fist. No swelling or tenderness to palpation of the MCPs, PIPs or DIPs. * Left Hand: Able to make a fist. No swelling or tenderness to palpation of the MCPs, PIPs or DIPs. * Herbedens nodes noted bilaterally Wrists * Right Wrist: Full ROM to flexion and extension. No swelling or TTP * Left Wrist: Full ROM to flexion and extension. No swelling or TTP Elbows * Right Elbow: Full ROM. No swelling or TTP. No TTP of the medial epicondyle. No TTP of the lateral epicondyle * Left Elbow: Full ROM. No swelling or TTP. No TTP of the medial epicondyle. No TTP of the lateral epicondyle Shoulders * Right shoulder: Full ROM. No swelling noted. No TTP of the AC joint. No TTP of the subacromial bursa. No TTP of the posterior shoulder * Left shoulder: Full ROM. No swelling noted. No TTP of the AC joint. No TTP of the subacromial bursa. No TTP of the posterior shoulder Knees * Right knee: No swelling noted. No TTP of the knee joint line. No TTP of pes anserine bursa * Left knee: No swelling noted. No TTP of the knee joint line. No TTP of pes anserine bursa. Ankles * Right ankle: Good ankle dorsiflexion and plantar flexion. No swelling. No TTP of the ankle joint * Left ankle: Good ankle dorsiflexion and plantar flexion. No swelling. No TTP of the ankle joint Feet * Right foot: Negative squeeze test * Left foot: Negative squeeze test Tender points? * No tenderness to palpation of the bilateral trapezius, supraspinatus, anterior costochondral junctions, bilateral suboccipital muscle insertions SKIN No rashes Vital Signs: Last Vital Signs Pulse 85 08/16/25 15:49 BP 112/72 08/16/25 15:49 Pulse Ox 98 08/16/25 15:49 Oxygen Delivery Method Room Air 08/16/25 15:49 BMI result Body Mass Index 36.1 Results Reviewed Results Reviewed: 02/23/25 [facility] WBC 6.1 Hb 13.3 Plt 317 BUN 22 Cr 0.72 eGFR 95 AST 26 ALT 24 ESR 21 CRP 8 Hep B NR Hep C NR Tb Negative Assessment & Plan Assessment & Plan (1) Psoriatic arthritis: Comment: HLA b27 +ve Dx 02/2021, MRI +ve for sacroiliitis L>R no erosions MTX started 04/2021, not tolerated due to GI upset Humira started 09/2021 effective DC 07/2023 due to neuropathy Taltz 09/2023 effective DC 11/2022 due to thrush Restarted 01/2024 Code(s): L40.50 - Arthropathic psoriasis, unspecified Category: Medical Plan: #PsA/Ank Spond Patient is a 60-year-old female with ankylosing spondylitis and psoriatic arthritis here today for follow up. Currently on Taltz and in remission. 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 Risks include infections, injection site reactions, activation of inflammatory bowel disease. Benefits include improved disease activity. Discussed with patient that if she is feeling sick or having flu-like symptoms she is to hold the medication that week and resolved the following week. Plan I spent 30 minutes reviewing the record and labs, taking a history, examining the patient, discussing the treatment plan, ordering diagnostic work up and documenting in the medical record Coding Level of Care Code Est Pt Level 4 (37421) Complex EM visit Add On G2211 Diagnoses Psoriatic arthritis L40.50 Long-term current use of ixekizumab Z79.620
[2025-08-16 15:49] VITALS: BP 112/72; PULSE 85; O2SAT 98; BMI 36.1
--- OUTSIDE RECORDS SUMMARY | 2025-08-16 18:07 | XMS_ITS | Clinical Summary ---
[place] [address] Care Team Providers Care Nuclear Chemistry Technician Name Role Phone Yanely Stover APRN Primary Care Provider [phone] Allergies Active Allergy Reactions Criticality Noted Date Comments Codeine 04/29/2016 nausea Garlic 08/03/2018 Furosemide Hives 08/03/2018 Doesn't remember if any allergy or taking meds Penicillins 04/29/2016 Nausea Sulfa (Sulfonamide Antibiotics) 04/29/2016 Nausea Medications diphenhydrAMINE (BENADRYL) 25 mg Capsule Take 25 mg by mouth every 6 hours as needed for Itching (4). Active fluticasone (FLONASE) 50 mcg/actuation Gering, Suspension 1 spray by Each Nare route daily. Active OLANZapine (ZYPREXA) 2.5 mg Tablet Take 2.5 mg by mouth nightly. 6 Active FLUoxetine (PROZAC) 20 mg Capsule Take 40 mg by mouth daily. 6 Active FLUOCINONIDE-EM OLLIENT 0.05 % Cream 6 Active ranitidine (ZANTAC) 150 mg Capsule Take 300 mg by mouth every evening. Active UNABLE TO FIND Med Name: Vit D and Alvaro., biox 4 Active PROAIR HFA 90 mcg/actuation HFA Aerosol Inhaler Inhale 2 puffs into the lungs every 4 hours as needed for Wheezing. 8 Active acetaminophen (TYLENOL) 500 mg Tablet Take 2 tablets by mouth every 8 hours. Continue the Tylenol around the clock for 10 days after surgery, (09/25/2018). Then may take if needed per package insert. Do not take more than 3,000 mg of Tylenol in 24 hours. 8 Active aspirin 81 mg Tablet, Delayed Release (E.C.) Take 1 tablet by mouth 2 times daily. Take with food for 30 days after surgery. Last day = 10/15/2018. 8 Active polyethylene glycol (MIRALAX) 17 gram Powder in Packet Take 17 g by mouth 2 times daily. 8 Active gabapentin (NEURONTIN) 300 mg Capsule Take 1 capsule by mouth nightly. Take nightly before bed for sleep for 4 weeks after surgery. 30 capsule 8 Active Additional Information Patient not taking.Reported on 10/19/2018 HYDROmorphone (DILAUDID) 2 mg TabletIndicatio ns:Status post total knee replacement, right Take 1 tablet by mouth daily as needed for Pain for up to 1 dose. 15 tablet 8 Active Active Problems Problem Noted Date Diagnosed Date Postoperative anemia due to acute blood loss s/p RIGHT TKA on 09/15/18 (Dr. Ramos) 2017 Obesity (BMI 30.0-34.9) 08/27/2018 Asthma 08/27/2018 IBS (irritable bowel syndrome) 08/27/2018 Sacroiliac joint pain 04/29/2016 Resolved Problems Problem Noted Date Diagnosed Date Resolved Date Primary osteoarthritis of right knee 08/03/2018 09/14/2018 Family History Medical History Relation Comments Diabetes Neg Hx Social History Tobacco Use Types Packs/Day Years Used Date Smoking Tobacco: Never Smokeless Tobacco: Never Alcohol Use Standard Drinks/Week Comments Yes 0 (1 standard drink = 0.6 oz pur e alcohol) Comments No Sex and Gender Information Value Date Recorded Sex Assigned at Not on file Legal Sex Female 8:20 AM EST Gender Identity Not on file Sexual Orientation Not on file Last Filed Vital Signs Vital Sign Reading Time Taken Comments Blood Pressure 135/81 10/19/2018 2:23 PM EST Pulse 78 10/19/2018 2:23 PM EST Temperature 36.4 C (97.5 F) 09/16/2018 12:01 PM EST Respiratory Rate 16 09/16/2018 12:01 PM EST Oxygen Saturation 97% 09/16/2018 12:01 PM EST Inhaled Oxygen Concentration - - Weight 81.6 kg (180 lb) 10/19/2018 2:23 PM EST v erbal Height 152.4 cm (5') 10/19/2018 2:23 PM EST verb al Body Mass Index 35.15 10/19/2018 2:23 PM EST Plan of Treatment Health Maintenance Due Date Last Done Comments CT Colonography 1964 Colonoscopy 1964 Colorectal Cancer Screening 1964 FIT DNA 1964 FIT 1964 Sigmoidoscopy (10 year) with FIT yearly 1964 Sigmoidoscopy 1964 HIV screen 01/27/1982 Hepatitis C Screening 01/27/1982 Tetanus/Diphtheria/Pertussis Vaccines (1 - Tdap) 01/27/1983 HPV test 01/27/1994 PAP Smear 01/27/1994 Breast Cancer Share Decision Needed 2004 Breast Cancer screening 2004 Pneumoccocal Vaccine: 50+ (1 of 1 - PCV) 01/27/2014 Zoster vaccine (1 of 2) 01/27/2014 Advance Directive 01/27/2019 Covid-19 Vaccine (2024-2 6 season) 2025 12/12/2023, 08/17/2023, 06/20/2022, Additional history exists Influenza (Flu) vaccine (1 o f 1 - Influenza standard series) 07/04/2025 Diabetes Screening (HgbA1C o r Glucose) Discontinued 09/16/2018, 09/15/2018, 08/20/2018 Medical Devices Implanted Type Area Edge Molder Device Identifier Shelf Expiration Date Model / Serial / Lot Cement,Bne,Sma rtset,Hv,Eo,40 g ([id number]) - [id number] Implanted:Qty: 1 on 09/15/2018 by Duncan Ramos MD at [facility] IMPLANTS Right: Knee [employer] [facility] [facility] [employer] 02/01/2020 3092-040 / / [id number] Cement,Bne,Sma rtset,Hv,Eo,40 g ([id number]) - [id number] Implanted:Qty: 1 on 09/15/2018 by Duncan Ramos MD at [facility] IMPLANTS Right: Knee [employer] - [employer] 02/01/2020 3092-040 / / [id number] Inser,Godfrey,Jagdeep r,Fb,Sz5,8mm ([id number]) (Autoreq) - [id number] Implanted:Qty: 1 on 09/15/2018 by Duncan Ramos MD at [facility] IMPLANTS Right: Knee [employer] 05/02/2023 8 / NA / [id number] Base,Atun,Tib, Fb,Cmnt,Sz4 ([id number]) (Autoreq) - [id number] Implanted:Qty: 1 on 09/15/2018 by Duncan Ramos MD at [facility] IMPLANTS Right: Knee [employer] [facility] 06/02/2028 4 / NA / [id number] Godfrey Jarquin M dl,Dome,32mm ([id number]) (Autoreq) - [id number] Implanted:Qty: 1 on 09/15/2018 by Duncan Ramos MD at [facility] IMPLANTS Right: Knee [employer] [facility] [facility] [facility] [employer] 07/03/2023 2 / NA / [id number] [place],Godfrey,F em,Cr,Nrw,Sz5, Rt ([id number]) (Autoreq) - [id number] Implanted:Qty: 1 on 09/15/2018 by Duncan Ramos MD at [facility] IMPLANTS Right: Knee [employer] [facility] [facility] [facility] [employer] 09/02/2027 5 / NA / [id number] Procedures Procedure Name Priority Date/Time Associated Diagnosis Comments BASIC METABOLIC PANEL Routine 09/16/2018 4:25 AM EST from Last 3 Months or Most Recently Relevant to Health Maintenance Results * (ABNORMAL) Basic Metabolic Panel (non-fasting) (09/16/2018 4:25 AM EST) Glucose 193 65 - 199 mg/dL [facility] Comment:Diabetes: >=200 mg/d L plus symptoms Blood Urea Nitrogen 13 8 - 18 mg/dL [facility] Creatinine 0.67(L) 0.70 - 1.20 mg/dL [facility] Sodium 139 135 - 145 mmol/L [facility] Potassium 4.0 3.5 - 5.0 mmol/L [facility] Comment: Please note: Patients with WBC >100,000 may have falsely elevated Potassium levels. For accurate Potassium quantification in these patients send serum separator tube (gold top) for subsequent determinations. Contact the Clinical Chemistry Laboratory if there are any questions. Chloride 104 98 - 107 mmol/L [facility] Carbon Dioxide 21(L) 22 - 31 mmol/L [facility] Anion Gap 14 5 - 15 mmol/L [facility] Calcium 8.2(L) 8.5 - 10.5 mg/dL [facility] Est Glomerular Filtration Rate 100 >=60 mL/min/1. 73 m [facility] Comment: The eGFR was calculated using the CKD-EPI equation. As with all creatinine based estimates of kidney function, eGFR values calculated with the CKD-EPI equation are not accurate in patients with acute kidney failure, extremes of body mass or the acutely ill. [email or web address] eGFR 116 >=60 mL/min/1. 73 m [facility] Comment: The eGFR was calculated using the CKD-EPI equation. As with all creatinine based estimates of kidney function, eGFR values calculated with the CKD-EPI equation are not accurate in patients with acute kidney failure, extremes of body mass or the acutely ill. [email or web address] Blood specimen (specimen) 09/16/2018 4:25 AM EST 09/16/2018 4:58 AM EST Narrative Resulting Agency Comment Spec In Lab us Duncan Ramos MD CHEMISTRY ORDERABLES Final [place] [address] from Last 3 Months or Most Recently Relevant to Health Maintenance Insurance [employer] Advance Directives * Full Code (Latest Code Status on File) Date Activated Date Inactivated Comments 09/15/2018 6:18 PM 09/16/2018 7:15 PM Question Answer Comments Does patient have capacity to make decision: Yes Care Teams Nuclear Chemistry Technician Relationship Specialty Start Date End Date Yanely Stover APRN [address] [address] PCP - General General Internal Medicine 07/28/18
--- OUTSIDE RECORDS SUMMARY | 2025-08-16 18:07 | XMS_ITS | Clinical Summary ---
Author Organization [facility] Address [address] [address] Phone Care Team Providers Care Plate And Weld Inspector Name Role Phone Unavailable Primary Care Provider Unavailabl e Social History Tobacco Use Types Packs/Day Years Used Date Smoking Tobacco: Never Assessed Education Answer Date Recorded Are you interested in more education? Not on rj e 02/28/2023 Are you concerned about learning? Not on file 02/28/2023 No 02/28/2023 No 02/28/2023 Digital Access Answer Date Recorded No 03/29/2023 No 03/29/2023 No 03/29/2023 Reliable internet access at home? Not on file 03/29/2023 Device with a working camera? Not on file Comments Unknown Sex and Gender Information Value Date Recorded Sex Assigned at Not on file Legal Sex Female 9:43 PM EDT Gender Identity Not on file Sexual Orientation Not on file Plan of Treatment Health Maintenance Due Date Last Done Comments Adult Td,Tdap Booster 1964 LIPID PANEL 1964 DEPRESSION SCREENING 1976 SMOKING Hx and SMOKELESS TOB ACCO SCREENING 01/27/1977 HEPATITIS C SCREENING 01/27/1982 HIV ONE-TIME SCREENING (18-6 5 YEARS) 01/27/1982 PAP SMEAR 01/27/1985 MAMMOGRAM 2004 COLOGUARD 01/27/2009 COLONOSCOPY 01/27/2009 COLORECTAL CANCER SCREENING 01/27/2009 FIT TEST 01/27/2009 FOBT 01/27/2009 SIGMOIDOSCOPY 01/27/2009 VIRTUAL COLONOSCOPY 01/27/2009 PNEUMOCOCCAL VACCINES (50+ y ears) (1 of 1 - PCV) 01/27/2014 ZOSTER VACCINES (1 of 2) 01/27/2014 INFLUENZA VACCINE (#1) 2025 COVID-19 VACCINE (2024-2 6 season) 2025 RSV VACCINE (1 - 1-dose 75+ series) 01/27/2039 HEPATITIS A VACCINES Aged Out No long er eligible based on patient's age to complete this topic HIB VACCINES Aged Out No longer eligi ble based on patient's age to complete this topic MENINGOCOCCAL VACCINES (ACWY) Aged Out No longer eligible based on patient's age to complete this topic MENINGOCOCCAL VACCINES (B) Aged Out N o longer eligible based on patient's age to complete this topic Medical Devices Not on file Insurance AETNA PPO AETNA PPO [place] [facility] [place] [facility] [place] AETNA PPO AETNA PPO AETNA PPO AETNA PPO AETNA PPO Additional Source Comments The information contained in this document represents components of the legal health record. It is not the complete legal health record.[facility]
== END 2025-08-16 16:35 | disposition home or self-care (01) ==
LOC: HO.RHES 15:14
PROVIDERS: PCP Registered Nurse Oncology; Visit Provider Student in an Organized Health Care Education/Training Program
DX: L40.50 Arthropathic psoriasis, unspecified (principal); Z79.620 Long term (current) use of immunosuppressive biologic
CPT/HCPCS: 99214